=== PATIENT | female | born 1950 | race Caucasian/White ===

== ENCOUNTER 2019-08-07 00:12 | Day surgery (SDC) | payer MEDICARE, OTHER, SELFPAY ==
[2019-08-02 10:35] VITALS: BMI 24.5
[2019-08-07 06:41] VITALS: BP 144/82; PULSE 77; RESP 16; TEMP 37.1; O2SAT 100; BMI 25.7
[2019-08-07] MEDS: LACTATED RINGERS 1,000 ML 150 ML IV CONT (07:09)
--- NOTE | 2019-08-07 07:12 | P.HP_ITS ---
History of Present Illness History of Present Illness Consent: Risks, benefits, and alternatives have been discussed and questions answered. Patient agrees to proceed with procedure. Chief complaint: Neoplasm Screening Narrative: Sharla Harris is a 69 year old female Referred for screening colonoscopy. Her last exam was 10 years ago [facility] Past Medical History Medical History GERD (gastroesophageal reflux disease) History of breast cancer HLD (hyperlipidemia) HTN (hypertension), benign Family History Family History Mother Family history of malignant neoplasm of breast in first degree relative, Onset Age: 45 Patient's mother is Father Family history of blood dyscrasia, Onset Age: 69 Patient's father is Social History Social History Smoking status: Never smoker Second hand tobacco smoke exposure: No Alcohol intake: current Drinks per week: 1 Substance use: never Substance use type: does not use Gender identity (if verbalized by the patient): Female Meds Home Medications and Allergies Home Medications Medication Instructions Recorded Confirmed Type amlodipine 5 mg tablet 5 mg PO DAILY 05/13/19 08/07/19 History omeprazole 40 mg capsule,delayed 40 mg PO DAILY 05/28/19 08/07/19 History release Allergies Allergy/AdvReac Type Severity Reaction Status Date / Time lisinopril Allergy Mild Cough Verified 08/07/19 07:10 Vital Signs Vital Signs - 24 hr 08/07/19 06:41 Temperature 37.1 C Pulse Rate 77 Respiratory Rate 16 Blood Pressure 144/82 H Pulse Oximetry 100 Exam Resp: Auscultation: clear to auscultation bilaterally Cardio: Rate: regular rate Rhythm: regular rhythm GI: GI Palp: Yes Soft to palpation and No Tenderness to palpation present (GI) Assessment and Plan Assessment and plan (1) Colon cancer screening: Code(s): Z12.11 - Encounter for screening for malignant neoplasm of colon Status: Acute Assessment and Plan: Colonoscopy with possible biopsy or polypectomy or cautery or injection of substances.
--- NOTE | 2019-08-07 07:22 | WPDANESEPPF ---
Anes - Initial Pre Proc Eval Procedure: Operation Date: 08/07/19 07:30 Proposed Procedures p Screening Colonoscopy - Solitario Bustamante MD Date/Time: 08/07/19 07:22 Surgeon: Solitario Bustamante MD Pre Op Diagnosis: Neoplasm Screening Patient Data Age: 69 Gender: F Height: 5 ft 2 in Weight: 63.8 kg Last Vital Signs Temp 98.7 F 08/07/19 06:41 Pulse 77 08/07/19 06:41 Resp 16 08/07/19 06:41 BP 144/82 H 08/07/19 06:41 Pulse Ox 100 08/07/19 06:41 Allergies Allergy/AdvReac Type Severity Reaction Status Date / Time lisinopril Allergy Mild Cough Verified 08/07/19 07:10 Home Medications Medication Instructions Recorded Confirmed Type amlodipine 5 mg tablet 5 mg PO DAILY 05/13/19 08/07/19 History omeprazole 40 mg capsule,delayed 40 mg PO DAILY 05/28/19 08/07/19 History release Patient hx anesthesia problems: none Family hx anesthesia problems: none PMFSH Past Medical History Medical History GERD (gastroesophageal reflux disease) History of breast cancer HLD (hyperlipidemia) HTN (hypertension), benign Family History Family History Mother Family history of malignant neoplasm of breast in first degree relative, Onset Age: 45 Patient's mother is Father Family history of blood dyscrasia, Onset Age: 69 Patient's father is Social History Social History Smoking status: Never smoker Second hand tobacco smoke exposure: No Alcohol intake: current Drinks per week: 1 Substance use: never Substance use type: does not use Gender identity (if verbalized by the patient): Female Anes - Eval Final PreProcedure Day of Procedure 08/07/19 07:22 Patient weight: normal Heart: regular rate and rhythm Lungs: clear to auscultation Airway: Mallampati scale class II Neurological: alert and oriented Last oral intake: >/= 8 hours ASA classification: III Emergent: no Anesthetic plan: proceed Anesthesia type and monitoring: general GIVS and standard monitoring Informed Consent: The patient's anesthetic plan and its attendant risks and benefits were discussed with the patient/family/POA. Questions were solicited and answers provided to the satisfaction of the patient/family/POA.
[2019-08-07 07:55] VITALS: BP 121/64; PULSE 72; RESP 16; O2SAT 92
[2019-08-07 08:10] VITALS: BP 131/68; PULSE 67; RESP 19; O2SAT 99
[2019-08-07 08:27] VITALS: BP 131/76; PULSE 66; RESP 15; O2SAT 97
== END 2019-08-07 08:29 | disposition home or self-care (01) ==
PROVIDERS: PCP Family Medicine; Visit Provider Internal Medicine Gastroenterology
PROC: 0DJD8ZZ Inspection of Lower Intestinal Tract, Via Natural or Artificial Opening Endoscopic (ICD-10-PCS; CPT 45378; principal; 2019-08-07 07:30)
DX: Z12.11 Encounter for screening for malignant neoplasm of colon (principal); D12.8 Benign neoplasm of rectum; K62.1 Rectal polyp; K57.30 Diverticulosis of large intestine without perforation or abscess without bleeding; I10 Essential (primary) hypertension; E78.5 Hyperlipidemia, unspecified; K21.9 Gastro-esophageal reflux disease without esophagitis; Z85.3 Personal history of malignant neoplasm of breast
CPT/HCPCS: 45380; 45385; 88305; J2704; J7120

== ENCOUNTER 2021-12-08 08:56 | Outpatient (CLI) | payer MEDICARE, OTHER, SELFPAY ==
--- NOTE | ~2021-12-08 | DEXA_ITS ---
Bone Density Report Name: ABHINAV OAKES Age: 71 Sex: Female Ethnicity: White Date of : 1950 Indication: osteopenia; height loss; cancer; hysterectomy; postmenopausal Referring Provider: BEBO HELLER Study: Bone densitometry was performed. Exam Date: December 08, 2021 Accession number: [id number] Bone Density: Region BMD T-score Z-score Classification AP Spine(L1-L4) 0.814 -2.1 0.2 Osteopenia Femoral Neck (Left) 0.689 -1.4 0.6 Osteopenia Total Hip (Left) 0.798 -1.2 0.5 Osteopenia Femoral Neck (Right) 0.709 -1.3 0.7 Osteopenia Total Hip (Right) 0.808 -1.1 0.6 Osteopenia Total Hip Mean 0.803 -1.2 0.6 Osteopenia World Health Organization criteria for BMD impression classify patients as: Normal (T-score at or above -1.0), Osteopenia (T-score between -1.0 and -2.5), or Osteoporosis (T-score at or below -2.5). 10-year Fracture Risk(1): Major Osteoporotic Fracture 11% Hip Fracture 1.8% Reported Risk Factors: [place] (), Neck BMD=0.689, BMI=27.7 (1) FRAX(R) Version 3.08. Fracture probability calculated for an untreated patient. Fracture probability may be lower if the patient has received treatment. Previous Exams: Region Exam Age BMD T-score BMD Change BMD Change Date g/cm2 vs Baseline vs Previous AP Spine (L1-L4) 12/08/2021 71 0.814 -2.1 -0.016 (-2.0%) -0.016 (-2.0%) 06/11/2019 68 0.830 -2.0 Total Hip(Left) 12/08/2021 71 0.798 -1.2 -0.051 (-6.1%) -0.051 (-6.1%) 06/11/2019 68 0.849 -0.8 Total Hip(Right) 12/08/2021 71 0.808 -1.1 -0.037 (-4.3%) -0.037 (-4.3%) 06/11/2019 68 0.845 -0.8 *Denotes significance at 95% confidence level, LSC for AP Spine = 0.022 g/cm2, LSC for Total Hip = 0.027 g/cm2 # Denotes dissimilar scan types or analysis methods Clinical Information Provided by Patient: Has used the following medications: Vitamin D, Calcium Has the following medical conditions: Cancer, Hysterectomy Patient maximum height was 62 Menopause Age: 42 Onset of menses at age 11 Number of children 2 Impression: The patient has low bone mass, based on the Total Spine T-score. The patient has an estimated ten-year risk of hip fracture of 1.8% and an estimated ten-year risk of major fracture of 11%, based on the WHO FRAX algorithm. No significant bone loss was observed. Discussion: BONE DENSITY IS LOW AT ONE OR MORE SKELETAL SITES. This patient's lowest T-score is low at one or more skeletal
== END 2021-12-08 08:57 | disposition home or self-care (01) ==
LOC: ANHIMG 08:57
PROVIDERS: PCP Family Medicine; Visit Provider Family Medicine
DX: Z78.0 Asymptomatic menopausal state (principal); M85.88 Other specified disorders of bone density and structure, other site; M85.852 Other specified disorders of bone density and structure, left thigh; M85.851 Other specified disorders of bone density and structure, right thigh
CPT/HCPCS: 77080

== ENCOUNTER 2023-04-21 11:29 | Outpatient (CLI) | payer MEDICARE, OTHER, SELFPAY ==
--- NOTE | ~2023-04-21 | XR_ITS ---
EXAMINATION: XR chest 2V 04/21/2023 12:05 INDICATION: Dry cough PROCEDURE: 2 view chest COMPARISON: 07/14/2011 FINDINGS: The lungs are clear. The cardiomediastinal silhouette is within normal limits. There are no pleural effusions. There is no pneumothorax suspected. There is atherosclerosis and ectasia of t he aorta. IMPRESSION: 1: NO ACUTE CARDIOPULMONARY DISEASE. Reviewed, dictated and finalized at location B. [employer]
== END 2023-04-21 11:30 | disposition home or self-care (01) ==
PROVIDERS: PCP Family Medicine; Visit Provider Physician Assistant
DX: R05.9 Cough, unspecified (principal)
CPT/HCPCS: 71046

== ENCOUNTER 2023-05-12 08:01 | Outpatient (CLI) | payer MEDICARE, OTHER, SELFPAY ==
--- NOTE | 2023-05-15 16:05 | P.PCNPFT_ITS ---
PFT Procedure Performed PFT Procedure Performed Spirometry with Pre/Post Bronchodilator Plethysmography (Lung Vol) Diffusing Cap (DLCO) Flow Vol Loop PFT Interpretation This is a pulmonary function test with pre and post-bronchodilator spirometry, plethysmography and diffusing capacity. The test was performed and results interpreted in accordance with the 2019 and 2005 ATS/ERS Task Force guidelines respectively using the Global Lung Function Initiative-2012 reference equations. Patient demonstrated good effort and cooperation. Reproducibility criteria were met. The quality of the pre bronchodilator spirometry maneuver was Grade B and post bronchodilator spirometry maneuver was Grade A. Findings: Spirometry: The contour the expiratory flow tracing demonstrates a mild mid expiratory plateau in all efforts and slightly more pronounced in the post bronchodilator efforts. The contour the inspiratory flow tracing is normal. The pre bronchodilator FVC is 2.48 L, 98% predicted. The pre bronchodilator FEV1 is 1.87 L, 96% predicted. The pre bronchodilator FEV1: FVC ratio 75%. The post bronchodilator FVC is 2.40 L, representing a 3% decrease. The post bronchodilator FEV1 is 1.92 L, representing a 3% increase. The post bronchodilator FEV1: FVC ratio was 80%. Plethysmography: The total lung capacity is 3.66 L, 77% predicted. The functional residual capacity is 1.84 L, 68% predicted. The residual volume is 1.18 L, 55% predicted. Diffusing capacity: The diffusing capacity unadjusted for hemoglobin and carboxyhemoglobin is 14.7, 76% predicted. The diffusing capacity adjusted for alveolar volume is 4.06, 94% predicted. Impression: The contour of the expiratory flow tracing demonstrates a reproducible mild mid expiratory plateau and is slightly more pronounced in the post bronchodilator efforts. This is referred to as the knee pattern and can be a normal variant or pathologic and has been attributed to a choke point section of the bronchial tree. The normal variant is more common in younger female patients, decreases with age and is more pronounced in the post br onchodilator efforts. The pattern has also been described with kyphosis, kyphoscoliosis, central obstructing mass, and post lung transplantation. Clinical correlation is recommended. Otherwise, the spirometry is normal without evidence of an obstructive abnormality. There is no significant improvement after inhaling a single dose of albuterol. The total lung capacity and functional residual capacity are normal with a decreased residual volume. This is an abnormal but nonspecific lung volume pattern. The diffusing capacity is normal. There are no prior studies for comparison
== END 2023-05-12 08:02 | disposition home or self-care (01) ==
LOC: ANHPFT 08:03
PROVIDERS: PCP Family Medicine; Visit Provider Physician Assistant
DX: R05.9 Cough, unspecified (principal); R06.09 Other forms of dyspnea
CPT/HCPCS: 94060; 94726; 94729